=== PATIENT | male | born 1975 | race African-American/Black ===

== ENCOUNTER 2017-06-16 06:54 | Emergency (ER) | payer SELFPAY ==
[~2017-06-16] VITALS: Ht 172.7 cm; Wt 81.6 kg
--- NOTE | 2017-06-16 08:23 | PHYS DOC ---
Past History Past Medical History: No Pertinent History Past Surgical History: No Surgical History Alcohol Use: Occasionally Drug Use: Methamphetamine Adult General Chief Complaint Chief Complaint: GROIN PAIN HPI HPI Patient is a 41 year old male who presents with complaint of penile discharge. Patient states that his symptoms started approximately 2 days ago. Patient states that he had recent unprotected sexual intercourse shortly prior to onset of symptoms. The patient is concerned he may have sexually transmitted infection. Patient states that he is having pain radiates towards his right groin. Patient denies any associated fevers or abdominal pain currently. The patient rates his pain as 5 out of 10. Patient states that the pain in his penis is sharp and worsens with urination. Patient admits to copious penile discharge that is yellowish. Patient also notes that he has developed sore throat. Patient admits to engaging in oral sex during the same sexual encounter. Patient has not taken any medications to help with symptoms at this time. Review of Systems Review of Systems Constitutional: Denies fever or chills [] Eyes: Denies change in visual acuity, redness, or eye pain [] HENT: Sore throat[] Respiratory: Denies cough or shortness of breath [] Cardiovascular: Denies chest pain or edema[] GI: Denies abdominal pain, nausea, vomiting, bloody stools or diarrhea [] : Penile discharge, dysuria, penile pain[] Musculoskeletal: Denies back pain or joint pain [] Integument: Denies rash or skin lesions [] Neurologic: Denies headache, focal weakness or sensory changes [] Allergies Allergies Allergies Coded Allergies Type Severity Reaction Last Updated Verified No Known Drug Allergies 06/16/17 No Physical Exam Physical Exam Constitutional: Well developed, well nourished, no acute distress, non-toxic appearance. [] HENT: Normocephalic, atraumatic, bilateral external ears normal, oropharynx moist, no oral exudates, nose normal. [] Eyes: PERRLA, EOMI, conjunctiva normal, no discharge. [] Neck: Normal range of motion, no tenderness, supple, no stridor. [] Cardiovascular:Heart rate regular rhythm, no murmur [] Lungs & Thorax: Bilateral breath sounds clear to auscultation [] Abdomen: Bowel sounds normal, soft, no tenderness, no masses, no pulsatile masses. [] Skin: Warm, dry, no erythema, no rash. [] Back: No tenderness, no CVA tenderness. [] Extremities: No tenderness, no cyanosis, no clubbing, ROM intact, no edema. [] Neurologic: Alert and oriented X 3, normal motor function, normal sensory function, no focal deficits noted. [] Psychologic: Affect normal, judgement normal, mood normal. [] Current Patient Data Vital Signs Vital Signs Date Time Temp Pulse Resp B/P (MAP) Pulse Ox O2 Delivery O2 Flow Rate FiO2 06/16/17 07:17 98.3 82 18 98 Room Air EKG EKG Not performed[] Radiology/Procedures Radiology/Procedures Not performed[] Course & Med Decision Making Course & Med Decision Making Pertinent Labs and Imaging studies reviewed. (See chart for details) Attempts were made at collecting a urinalysis from the patient in the emergency department, however the patient did not provide a urine sample. A urethral swab was obtained with the patient's consent. I had high suspicion that patient's symptoms are due to sexually transmitted infection secondary to gonorrhea with possible coinfection of chlamydia. Patient was given Rocephin and azithromycin in the emergency department for treatment. Advised patient to inform all sexual partners of possible exposure to sexually transmitted infection and need for medical evaluation and treatment. Recommended follow-up with primary doctor in 5 -7 days for reevaluation and return to emergency department for any worsening symptoms. Patient voiced understanding and in agreement with treatment plan. Dragon Disclaimer Dragon Disclaimer This chart was dictated in whole or in part using Voice Recognition software in a busy, high-work load, and often noisy Emergency Department environment. It may contain unintended and wholly unrecognized errors or omissions. Departure Departure: Impression: Primary Impression: Urethritis Additional Impressions: Sexually transmitted infection Pharyngitis Disposition: 01 HOME, SELF-CARE Condition: STABLE Patient Instructions: Sexually Transmitted Disease Additional Instructions: You were treated with Rocephin and azithromycin at your emergency department visit for suspicion of sexually transmitted infection. Cultures will require 2- 3 days for results. Follow-up with your primary doctor in 5-7 days of symptoms are not improving. Please inform any sexual partners of possible risk of exposure as they will need medical evaluation and treatment. Please return to the emergency department for any worsening symptoms. Problem Qualifiers Additional Impressions: Pharyngitis Pharyngitis/tonsillitis etiology: unspecified etiology Qualified Codes: J02.9 - Acute pharyngitis, unspecified CLAIRE BOOTH MD Jun 16, 2017 08:23
[2017-06-16] MEDS ORDERED: cefTRIAXone IM 250 MG VIAL IM ONE (08:30)
[2017-06-16] MEDS ORDERED: AZITHROMYCIN 250 MG TABLET. PO ONE (08:30)
[2017-06-16 08:36] VITALS: BP 112/75
== END 2017-06-16 08:40 | disposition home or self-care (01) ==
LOC: ER 06:54
DX: N34.2 Other urethritis (principal); A64 Unspecified sexually transmitted disease; J02.9 Acute pharyngitis, unspecified
CPT/HCPCS: 87070; 87880; 96372; 99284; J0696

== ENCOUNTER 2017-06-21 01:21 | Emergency (ER) | payer SELFPAY ==
[~2017-06-21] VITALS: Ht 172.7 cm; Wt 81.6 kg
[2017-06-21 01:21] VITALS: BP 143/108
--- NOTE | 2017-06-21 01:48 | ED.ADGEN ---
Past History Past Medical History: No Pertinent History Past Surgical History: No Surgical History Alcohol Use: Occasionally Drug Use: Methamphetamine Adult General Chief Complaint Chief Complaint SORE THROAT HPI HPI Patient is a 41 y/o male with sore throat. he was seen on 06/16 for urethritis and pharyngitis. he received abx and urethritis is better but throat still hurts. he is coughing up white sputum he says. no fever, +fatigue. no n/v Review of Systems Review of Systems Constitutional: Denies fever or chills [] Eyes: Denies change in visual acuity, redness, or eye pain [] HENT: +sore throat Respiratory: productive cough , no shortness of breath [] Cardiovascular: No additional information not addressed in HPI [] GI: Denies abdominal pain, nausea, vomiting, bloody stools or diarrhea [] : Denies dysuria or hematuria [] Musculoskeletal: Denies back pain or joint pain [] Integument: Denies rash or skin lesions [] Neurologic: Denies headache, focal weakness or sensory changes [] Endocrine: Denies polyuria or polydipsia [] Allergies Allergies Allergies Coded Allergies Type Severity Reaction Last Updated Verified No Known Drug Allergies 06/16/17 No Physical Exam Physical Exam Constitutional: Well developed, well nourished, no acute distress, non-toxic appearance. [] HENT: Normocephalic, atraumatic, bilateral external ears normal, oropharynx moist, no oral exudates, nose normal. [] Eyes: PERRLA, EOMI, conjunctiva normal, no discharge. [] Neck: Normal range of motion, no tenderness, supple, no stridor. [] Cardiovascular:Heart rate regular rhythm, no murmur [] Lungs & Thorax: Bilateral breath sounds clear to auscultation [] Abdomen: Bowel sounds normal, soft, no tenderness, no masses, no pulsatile masses. [] Skin: Warm, dry, no erythema, no rash. [] Back: No tenderness, no CVA tenderness. [] Extremities: No tenderness, no cyanosis, no clubbing, ROM intact, no edema. [] Neurologic: Alert and oriented X 3, normal motor function, normal sensory function, no focal deficits noted. [] Psychologic: Affect normal, judgement normal, mood normal. [] Current Patient Data Vital Signs Vital Signs Date Time Temp Pulse Resp B/P (MAP) Pulse Ox O2 Delivery O2 Flow Rate FiO2 06/21/17 01:21 98.6 84 20 99 Room Air EKG EKG [] Radiology/Procedures Radiology/Procedures [] Course & Med Decision Making Course & Med Decision Making Pertinent Labs and Imaging studies reviewed. (See chart for details) strep neg today. GC still pending from 06/16. will give 5 days zithromax. and lortab elixir. he has a pcp to f/u with for GC results. no herpetic lesions seen in post pharynx [] Final Impression Final Impression pharyngitis[] Problems: Dragon Disclaimer Dragon Disclaimer This electronic medical record was generated, in whole or in part, using a voice recognition dictation system. Departure Time of Disposition: 01:47 Disposition: HOME, SELF-CARE Diagnosis: pharyngitis Condition: GOOD Patient Instructions: Viral and Bacterial Pharyngitis, [id number] Additional Instructions: start zithromax for infection. lortab elixir for pain. have your doctor check on gonorrhea/chlamydia results on monday. return if symptoms worsen. Prescriptions zithromax and lortab elixir KEVIN THOMAS MD Jun 21, 2017 01:48
[2017-06-21] MEDS ORDERED: HYDR15SO4 PO (01:51)
[2017-06-21] MEDS ORDERED: AZIT250T PO (01:51)
== END 2017-06-21 01:55 | disposition home or self-care (01) ==
LOC: ER 01:21
DX: J02.9 Acute pharyngitis, unspecified (principal); R53.83 Other fatigue
CPT/HCPCS: 87070; 87880; 99283

== ENCOUNTER 2017-06-30 04:10 | Emergency (ER) | payer SELFPAY ==
[~2017-06-30] VITALS: Ht 172.7 cm; Wt 79.4 kg
[2017-06-30 04:10] VITALS: BP 167/100
[~2017-06-30 04:10] MED LIST: AZIT250T PO; HYDR15SO4 PO
--- NOTE | 2017-06-30 04:32 | PHYS DOC ---
Past History Past Medical History: No Pertinent History Past Surgical History: No Surgical History Alcohol Use: Occasionally Drug Use: Methamphetamine Adult General HPI HPI 41-year-old male with a history of noncompliance with his hypertensive therapy as well as chronic tobacco abuse and anxiety regarding his medical conditions, now presents the emergency room complaining of a productive cough which is chronic with white sputum. He is a daily tobacco abuser. He has no exertional chest pain or shortness of breath. No pleuritic pain. No purulent sputum. Patient was recently evaluated for a sore throat and his rapid strep was negative. Patient has no other complaints Review of Systems Review of Systems Constitutional: Denies fever or chills [] Eyes: Denies change in visual acuity, redness, or eye pain [] HENT: Denies nasal congestion or sore throat [] Respiratory: Denies cough or shortness of breath [] Cardiovascular: No additional information not addressed in HPI [] GI: Denies abdominal pain, nausea, vomiting, bloody stools or diarrhea [] : Denies dysuria or hematuria [] Musculoskeletal: Denies back pain or joint pain [] Integument: Denies rash or skin lesions [] Neurologic: Denies headache, focal weakness or sensory changes [] Endocrine: Denies polyuria or polydipsia [] Allergies Allergies Allergies Coded Allergies Type Severity Reaction Last Updated Verified No Known Drug Allergies 06/16/17 No Physical Exam Physical Exam Well-appearing patient in no acute distress normal oropharynx mucous membranes moist supple neck clear lungs regular rate and rhythm no tachycardia benign abdomen nonfocal neuro Constitutional: Well developed, well nourished, no acute distress, non-toxic appearance. [] HENT: Normocephalic, atraumatic, bilateral external ears normal, oropharynx moist, no oral exudates, nose normal. [] Eyes: PERRLA, EOMI, conjunctiva normal, no discharge. [] Neck: Normal range of motion, no tenderness, supple, no stridor. [] Cardiovascular:Heart rate regular rhythm, no murmur [] Lungs & Thorax: Bilateral breath sounds clear to auscultation [] Abdomen: Bowel sounds normal, soft, no tenderness, no masses, no pulsatile masses. [] Skin: Warm, dry, no erythema, no rash. [] Back: No tenderness, no CVA tenderness. [] Extremities: No tenderness, no cyanosis, no clubbing, ROM intact, no edema. [] Neurologic: Alert and oriented X 3, normal motor function, normal sensory function, no focal deficits noted. [] Psychologic: Affect normal, judgement normal, mood normal. [] EKG EKG [] Radiology/Procedures Radiology/Procedures [] Course & Med Decision Making Course & Med Decision Making Pertinent Labs and Imaging studies reviewed. (See chart for details) Signs and symptoms consistent with anxiety regarding medical conditions in the setting of chronic tobacco abuse and clinical evidence of chronic bronchitis with a normal respiratory rate and pulse ox in a well-appearing patient. Benign exam. Known history of hypertension with which the patient is noncompliant. he is aware of critical importance of close follow-up with his primary care doctor for reevaluation and to reinitiate his antihypertensive therapy. No further workup or treatment indicated at this time. Patient agrees with outpatient follow-up and strict return precautions given [] Dragon Disclaimer Dragon Disclaimer This chart was dictated in whole or in part using Voice Recognition software in a busy, high-work load, and often noisy Emergency Department environment. It may contain unintended and wholly unrecognized errors or omissions. Departure Departure: Impression: Primary Impression: Anxiety about health Additional Impressions: Tobacco abuse Chronic bronchitis Hypertension Disposition: 01 HOME, SELF-CARE Condition: GOOD Referrals: ALEJANDRO RAE MD (PCP) Patient Instructions: Bronchitis, [id number], Hypertension, Smoking Cessation , Smoking Hazards Additional Instructions: You are persistent chronic cough with white sputum is consistent with chronic bronchitis. This is a result of your chronic tobacco abuse. Your blood pressure was elevated on your last visit and again today. Follow-up with your doctor tomorrow for reevaluation blood pressure recheck and initiation of antihypertensive therapy as needed. Also discussed smoking cessation and your anxiety about your medical condition and health. Problem Qualifiers JADEN LYLES MD Jun 30, 2017 04:32
== END 2017-06-30 04:42 | disposition home or self-care (01) ==
LOC: ER 04:10
DX: F41.9 Anxiety disorder, unspecified (principal); R05 Cough; J42 Unspecified chronic bronchitis; I10 Essential (primary) hypertension; Z91.19 Patient's noncompliance with other medical treatment and regimen; Z72.0 Tobacco use
CPT/HCPCS: 99281

== ENCOUNTER 2017-09-18 03:05 | Emergency (ER) | payer SELFPAY ==
[~2017-09-18] VITALS: Ht 172.7 cm; Wt 79.4 kg
[2017-09-18 03:05] VITALS: BP 173/111
--- NOTE | 2017-09-18 03:16 | PHYS DOC ---
General Chief Complaint: FALL INJURY Stated Complaint: REPORT OF FALL RIB PAIN Time Seen by MD: 03:09 Source: patient, old records Exam Limitations: no limitations Problems: History of Present Illness Initial Comments Patient is a 42-year-old male with history of noncompliance and methamphetamine use who comes to the ED complaining of fall injuries. Patient states that 7 or 8 days ago he was sitting on a friend's patio and fell. He is a vague historian but states somehow he hit his left rib cage on something when he fell. He complains of anterior left lower rib pain described as moderate no exacerbating or relieving factors and no pre-arrival treatment has been sought." I wasn't even going to come in but a friend thought you better check my lungs." He denies other injuries from this reported fall, specifically no head trauma loss of consciousness headache or neck pain. I asked the patient to lift his shirt and take some deep breaths, he can take deep breaths without any difficulty and movement is symmetrical there are no skin changes swelling or bruising to suggest trauma. Patient is holding his hands over his left lower rib cage as if in severe discomfort, he is moving very gingerly in the fast track area for evaluation. This movement and behavior is much different than he was just minutes before visualized on security cameras by multiple staff members prior to his checking in. He was seen bending over and picking up his backpack and coats, ambulating through the waiting room, and carrying the multiple heavy belongings he's brought with him without any apparent discomfort or difficulty. On the camera he was visualized coming out of the restroom and as he approached the ED registration desk did put his hands over his left lower ribs as if in discomfort. After checking in and being advised to get his things and meet registration through the controlled access door the patient was seen moving normally without discomfort bending to cloth picker his items from the floor without any sandie movement or apparent discomfort. ED records indicate the patient has history of hypertension and in the past he has stated that he was noncompliant with medications and intended to continue to be moving forward. 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 He will intermittently come out and sit in the chairs of the waiting room, and invariably goes back and forth to the restroom multiple times sometimes staying for a few hours and when asked by ED staff if he needs to be seen as a patient he has replied "I think one of my friends and is coming to check in and I'm waiting for her." To date no one has, to check in for whom he was waiting and he has left on his own. ED vital signs are stable Registration reports that the patient is in the system from prior visits however tonight he has given completely different demographic data including his date of . Timing/Duration: 1 week, constant Severity: moderate Modifying Factors: improves with other Associated Symptoms: other Allergies: Coded Allergies: No Known Drug Allergies (Unverified , 06/16/17) Past Medical History Medical History: hypertension, other (noncompliance, polysubstance abuse) Surgical History: noncontributory Social History Smoker: cigarettes Alcohol: occasionally Drugs: other (methamphetamine) Review of Systems Constitutional: denies chills, denies fever Respiratory: see HPI, denies cough, denies orthopnea, denies shortness of breath, denies wheezing Cardiovascular: see HPI, denies chest pain, denies palpitations, denies syncope Gastrointestinal: denies abdominal pain, denies nausea, denies vomiting Musculoskeletal: see HPI, denies back pain, denies joint swelling, denies neck pain Psychiatric/Neurological: denies headache, denies numbness, denies paresthesia Hematologic/Lymphatic: denies blood clots, denies easy bleeding, denies easy bruising Physical Exam General Appearance: no apparent distress Eyes: bilateral eye PERRL, bilateral eye EOMI, bilateral eye other ( conjunctivae injected) Neck: non-tender, supple Respiratory: lungs clear, normal breath sounds, no respiratory distress (no swelling, ecchymosis, paradoxical motion, bony tenderness or palpable bony deformity. 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 Patient has refused to give urine specimen. I discussed negative imaging studies and physical exam findings with the patient. I did offer Toradol intramuscularly for symptomatic relief however the patient states "I didn't think I needed to come here my friend just thought my lungs should be checked out." He refuses Toradol. 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 Drug seeking behavior has been suspected in the past, patient does appear to be homeless and there is question in my mind as to whether he has come just to try to find a place to be warm. Signs and symptoms to monitor were discussed the patient's questions were answered and he did express agreement and understanding of the treatment plan. Departure Time of Disposition: 03:36 Disposition: 01 HOME, SELF-CARE Diagnosis: Report of Fall, Rib Pain Condition: GOOD Patient Instructions: Fall Prevention and Home Safety, [id number] Additional Instructions: Please review the patient education materials given by ED staff. As discussed no obvious serious injury is noted from your fall on physical exam or imaging studies. [id number] Tylenol and ibuprofen as needed. Follow-up with your doctor in 1-2 weeks if no symptom improvement. Return to ED with new or changing symptoms. CHELE JAMES DO Sep 18, 2017 03:16
--- NOTE | 2017-09-18 09:27 | RAD ---
Left RIBS with chest, 09/18/2017: History: Fall, left rib pain There is a fracture of the anterior aspect of the left seventh rib which is probably recent. Mild deformity of the posterolateral aspect of the left ninth rib is compatible with an old healed fracture. No other fracture or dislocation is identified. There is no evidence of underlying pneumothorax or hemothorax. The heart size is normal. IMPRESSION: 1. Fracture of the anterior aspect of left seventh rib which is probably recent. 2. Old left ninth rib fracture. Note: The findings were called to personnel in the [facility] ER at 9:25 AM on 09/18/2017.
== END 2017-09-18 03:46 | disposition home or self-care (01) ==
LOC: ER 03:05
DX: R07.81 Pleurodynia (principal); I10 Essential (primary) hypertension; F17.210 Nicotine dependence, cigarettes, uncomplicated; F15.10 Other stimulant abuse, uncomplicated; Z91.14 Patient's other noncompliance with medication regimen; W17.89XA Other fall from one level to another, initial encounter; Y93.89 Activity, other specified; Y99.8 Other external cause status; Y92.89 Other specified places as the place of occurrence of the external cause
CPT/HCPCS: 71101; 99284

== ENCOUNTER 2019-09-24 12:42 | Emergency (ER) | payer SELFPAY ==
[~2019-09-24] VITALS: Ht 175.3 cm; Wt 81.6 kg
[~2019-09-24 12:42] MED LIST changes: -HYDR15SO4 PO; +HYDR15SO6 PO
[2019-09-24] MEDS ORDERED: LIDOCAINE 2%/EPI 1:100,000 20 ML VIAL. ONE (12:58)
[2019-09-24] MEDS ORDERED: DIPHTH,PERTUSS(ACELL),TET TOX 0.5 ML DISP.SYRIN. VAX IM ONE (13:15)
[2019-09-24] MEDS ORDERED: LIDOCAINE 2%/EPI 1:100,000 20 ML VIAL. IJ ONE (13:15)
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
[2019-09-24 13:43] VITALS: BP 151/107
[2019-09-24] MEDS ORDERED: CLON-276 PO (13:44)
[2019-09-24] MEDS ORDERED: TRAM50TA PO (13:44)
[2019-09-24] MEDS ORDERED: ACETAMINOPHEN 325 MG TABLET PO ONE (13:45)
[2019-09-24] MEDS ORDERED: cloNIDine HCL 0.1 MG TABLET PO ONE (13:45)
--- NOTE | 2019-09-24 13:59 | RAD ---
CT HEAD AND MAXILLOFACIAL WO History: Comparison: None. Technique: Noncontrast CT imaging was performed of the head and maxillofacial. Coronal and sagittal reconstructions were performed. Exposure: One or more of the following individualized dose reduction techniques were utilized for this examination: 1. Automated exposure control 2. Adjustment of the mA and/or kV according to patient size 3. Use of iterative reconstruction technique. Findings: Head CT: No intracranial hemorrhage. No mass effect. No hydrocephalus. Extra-axial spaces are unremarkable. Maxillofacial CT: Twisting right maxillary central and lateral incisor with irregularity of the adjacent alveolar ridge. No additional evidence of fracture. Left maxillofacial and inferior periorbital soft tissue swelling with gas, likely laceration. Orbits are unremarkable. Minimal left inferior maxillary sinus mucosal thickening. Mastoid air cells are clear. No acute calvarial fracture. Impression: Head CT: 1. No acute intracranial abnormality. Maxillofacial CT: 1. Left facial and infraorbital soft tissue injury with swelling. 2. Missing maxillary right central and lateral incisor with irregularity of the adjacent alveolar ridge. Correlate for traumatic avulsion. Electronically signed by: Dalton Steel DO (09/24/2019 1:56 PM) [id number]
== END 2019-09-24 14:50 | disposition home or self-care (01) ==
LOC: ER 12:42
DX: S05.42XA Penetrating wound of orbit with or without foreign body, left eye, initial encounter (principal); I10 Essential (primary) hypertension; F19.10 Other psychoactive substance abuse, uncomplicated; F15.10 Other stimulant abuse, uncomplicated; Y08.89XA Assault by other specified means, initial encounter; Y93.89 Activity, other specified; Y92.89 Other specified places as the place of occurrence of the external cause; Y99.8 Other external cause status
CPT/HCPCS: 70450; 70486; 96372; 99284-25

== ENCOUNTER 2019-10-01 18:49 | Emergency (ER) | payer SELFPAY ==
[~2019-10-01] VITALS: Ht 175.3 cm; Wt 81.6 kg
[~2019-10-01 18:49] MED LIST changes: +CLON-276 PO; +TRAM50TA PO
[2019-10-01 19:00] VITALS: BP 140/100
[2019-10-01] MEDS ORDERED: ERYTHROMYCIN 0.5% OPHTH OINTMENT 1GM TUBE. OS ONE (19:15)
--- NOTE | 2019-10-01 19:17 | PHYS DOC ---
Past History Past Medical History: Hypertension Additional Past Medical Histor: pt reports he has not taken his blood pressure medications " in 2 years" Past Surgical History: No Surgical History Alcohol Use: Rarely Drug Use: Methamphetamine Adult General Chief Complaint Chief Complaint: SUTURE/STAPLE REMOVAL HPI HPI 44-year-old male presents for suture removal, but also has an erythematous left conjunctiva. He denies any chance of foreign body. He has had some purulent discharge from that eye. He denies any other injuries or complaints. Review of Systems Review of Systems Constitutional: Denies fever or chills [] Eyes: Redness of the left conjunctiva. Denies change in visual acuity, or eye pain [] HENT: Denies nasal congestion or sore throat [] Respiratory: Denies cough or shortness of breath [] Cardiovascular: No additional information not addressed in HPI [] GI: Denies abdominal pain, nausea, vomiting, bloody stools or diarrhea [] : Denies dysuria or hematuria [] Musculoskeletal: Denies back pain or joint pain [] Integument: Sutures left face[] Neurologic: Denies headache, focal weakness or sensory changes [] Endocrine: Denies polyuria or polydipsia [] All other systems were reviewed and found to be within normal limits, except as documented in this note. Allergies Allergies Allergies Coded Allergies Type Severity Reaction Last Updated Verified No Known Drug Allergies 06/16/17 No Physical Exam Physical Exam Constitutional: Well developed, well nourished, no acute distress, non-toxic appearance. [] HENT: Normocephalic, atraumatic, bilateral external ears normal, oropharynx moist, no oral exudates, nose normal. [] Eyes: PERRLA, EOMI, conjunctiva are erythematous left eye, purulent discharge. [] Neck: Normal range of motion, no tenderness, supple, no stridor. [] Cardiovascular:Heart rate regular rhythm, no murmur [] Lungs & Thorax: Bilateral breath sounds clear to auscultation [] Abdomen: Bowel sounds normal, soft, no tenderness, no masses, no pulsatile masses. [] Skin: 4 sutures in the face below the left eye, appropriate healing.[] Back: No tenderness, no CVA tenderness. [] Extremities: No tenderness, no cyanosis, no clubbing, ROM intact, no edema. [] Neurologic: Alert and oriented X 3, normal motor function, normal sensory function, no focal deficits noted. [] Psychologic: Affect normal, judgement normal, mood normal. [] Current Patient Data Vital Signs Vital Signs Date Time Temp Pulse Resp B/P (MAP) Pulse Ox O2 Delivery O2 Flow Rate FiO2 10/01/19 19:00 98.3 88 16 100 Room Air EKG EKG [] Radiology/Procedures Radiology/Procedures [] Course & Med Decision Making Course & Med Decision Making Pertinent Labs and Imaging studies reviewed. (See chart for details) Was able to remove the patient's sutures without significant difficulty. He appears to have bacterial conjunctivitis of the left eye. I will give him erythr omycin ointment for treatment. He is stable for discharge at this time. [] Dragon Disclaimer Dragon Disclaimer This electronic medical record was generated, in whole or in part, using a voice recognition dictation system. Departure Departure: Impression: Primary Impression: Visit for suture removal Additional Impression: Bacterial conjunctivitis of left eye Disposition: HOME, SELF-CARE Condition: STABLE Referrals: ALEJANDRO RAE MD (PCP) Patient Instructions: Bacterial Conjunctivitis, [id number] Problem Qualifiers GALEN DICKINSON DO Oct 01, 2019 19:17
== END 2019-10-01 19:20 | disposition home or self-care (01) ==
LOC: ER 18:49
DX: S01.81XD Laceration without foreign body of other part of head, subsequent encounter (principal); H10.9 Unspecified conjunctivitis; I10 Essential (primary) hypertension; X58.XXXD Exposure to other specified factors, subsequent encounter
CPT/HCPCS: 99282